=== PATIENT | male | born 1975 ===

== ENCOUNTER 2016-11-20 20:43 | Emergency (ER) | payer SELFPAY ==
[2016-11-20 20:56] VITALS: BP 146/88; PULSE 93; RESP 20; TEMP 97.8; O2SAT 96
[2016-11-20] MEDS ORDERED: Ofloxacin 0.3% Otic Soln AD STA (21:22)
--- NOTE | 2016-11-20 21:32 | C.PDOC ---
History Of Present Illness 41 y/o male presents to the ED with complains of right ear pain. 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 No other complaints at this time. Time Seen by Provider: 11/20/16 20:55 Chief Complaint (Nursing): ENT Problem History Per: Patient History/Exam Limitations: None Onset/Duration Of Symptoms: Mins Current Symptoms Are (Timing): Still Present Quality (Ear): Foreign Body Symptoms Have Been: Continuous Severity: Mild Anticoagulant/Antiplatlet Use?: No Past Medical History Reviewed: Historical Data, Nursing Documentation, Vital Signs Vital Signs: Last Vital Signs Temp 97.8 F 11/20/16 20:53 Pulse 93 H 11/20/16 20:53 Resp 20 11/20/16 20:53 BP 146/88 11/20/16 20:53 Pulse Ox 96 11/20/16 21:37 Family History: States: Unknown Family Hx - Social History Hx Alcohol Use: Yes Hx Substance Use: No - Immunization History Hx Tetanus Toxoid Vaccination: No Hx Influenza Vaccination: No Hx Pneumococcal Vaccination: No Review Of Systems Except As Marked, All Systems Reviewed And Found Negative. Constitutional: Negative for: Fever, Chills ENT: Positive for: Ear Pain (right) Physical Exam - Physical Exam Appears: Non-toxic, No Acute Distress Skin: Warm, Dry, No Rash Head: Atraumatic, Normacephalic Ear(s): Left: Normal, Right: Other (canal erythema, minimal swelling, TM normal , no mastoid tenderness) Nose: Normal Neurological/Psych: Oriented x3, Normal Speech ED Course And Treatment O2 Sat by Pulse Oximetry: 96 (room air) Pulse Ox Interpretation: Normal Progress Note: Gave ofloxacin in ED, sent home with ofloxacin. f/u with ENT . Disposition - Disposition Referrals: Guillaume Bertrand MD [Staff Provider] - Disposition: HOME/ ROUTINE Disposition Time: 21:34 Condition: STABLE Additional Instructions: Follow up with ENT within 1-2 days. Return to ED if feel worse. 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 - Scribe Statement The provider has reviewed the documentation as recorded by the Jenelle [place] All medical record entries made by the Jenelle were at my direction and personally dictated by me. I have reviewed the chart and agree that the record accurately reflects my personal performance of the history, physical exam, medical decision making, and the department course for this patient. I have also personally directed, reviewed, and agree with the discharge instructions and disposition.
== END 2016-11-20 21:52 | disposition home or self-care (01) ==
LOC: C.ER 20:43
DX: H60.91 Unspecified otitis externa, right ear (principal)